=== PATIENT | male | born 2000 | race Two or more races ===

== ENCOUNTER 2020-05-10 13:02 | Emergency (ER) | payer OTHER ==
[~2020-05-10] VITALS: Ht 177.8 cm; Wt 77.1 kg
== END 2020-05-10 16:39 | disposition home or self-care (01) ==
LOC: EMR PED 13:02 → ER 13:02 → EMR PED 13:56
DX: G89.29 Other chronic pain (principal); M54.2 Cervicalgia; M62.838 Other muscle spasm; E16.1 Other hypoglycemia; Z03.818 Encounter for observation for suspected exposure to other biological agents ruled out

== ENCOUNTER 2020-05-20 19:32 | Emergency (ER) | payer OTHER ==
[~2020-05-20] VITALS: Ht 177.8 cm; Wt 77.1 kg
== END 2020-05-20 22:36 | disposition home or self-care (01) ==
LOC: EMR PED 19:32
DX: R53.1 Weakness (principal); B34.9 Viral infection, unspecified; Z03.818 Encounter for observation for suspected exposure to other biological agents ruled out